=== PATIENT | male | born 1995 | race Two or more races ===

== ENCOUNTER 2021-06-29 16:16 | Emergency (ER) | payer OTHER ==
[~2021-06-29] VITALS: Ht 180.3 cm; Wt 83.9 kg
== END 2021-06-29 18:48 | disposition home or self-care (01) ==
LOC: ER 16:16
DX: J02.8 Acute pharyngitis due to other specified organisms (principal); B96.89 Other specified bacterial agents as the cause of diseases classified elsewhere; R53.81 Other malaise

== ENCOUNTER → 2022-04-19 | Emergency (ER) | payer OTHER ==
[~2022-04-19] VITALS: Ht 180.3 cm; Wt 83.9 kg
== END | disposition home or self-care (01) ==
LOC: ER 16:01
DX: L03.221 Cellulitis of neck (principal); L02.11 Cutaneous abscess of neck

== ENCOUNTER → 2023-05-30 | Emergency (ER) | payer OTHER ==
[~2023-05-30] VITALS: Ht 180.3 cm; Wt 86.2 kg
== END | disposition left against medical advice (07) ==
LOC: ER
DX: Z53.21 Procedure and treatment not carried out due to patient leaving prior to being seen by health care provider (principal)